=== PATIENT | male | born 1950 | race Caucasian/White ===

== ENCOUNTER 2018-03-06 06:44 | Day surgery (SDC) | payer MEDICARE ==
[2018-03-06] MEDS ORDERED: ECOTRIN PO ONE (07:27)
[2018-03-06 07:44] LABS: Basophils % (Auto) 0.6 % (0.0-1.8); Eosinophils # (Auto) 0.4 K/mm3 (0.0-0.4); Eosinophils % (Auto) 4.9 % (0.0-4.3); Hematocrit 31.1 % (35.5-45.6); Lymphocytes # (Auto) 2.1 K/mm3 (1.2-5.4); Lymphocytes % (Auto) 29.1 % (13.4-35.0); Mean Corpuscular HGB Conc 35 % (32-34); Mean Corpuscular Hemoglobin 31 pg (28-32); Mean Corpuscular Volume 87 fl (84-94); Monocytes # (Auto) 0.5 K/mm3 (0.0-0.8); Monocytes % (Auto) 7.6 % (0.0-7.3); Platelet Count 194 K/mm3 (140-440); Red Blood Count 3.59 M/mm3 (3.65-5.03); Red Cell Distribution Width 13.3 % (13.2-15.2)
[2018-03-06 07:58] LABS: BUN/Creatinine Ratio 25; Blood Urea Nitrogen 25 mg/dL (9-20); Calcium 9.6 mg/dL (8.4-10.2); Hemolysis Index 7
[2018-03-06 07:59] LABS: INR 1.02 (0.87-1.13)
[2018-03-06] MEDS ORDERED: NACL 0.9% 500 ML 500 ML IV SCH (08:00)
[2018-03-06] MEDS ORDERED: VERSED ONE (08:27)
[2018-03-06] MEDS ORDERED: SUBLIMAZE ONE (08:27)
[2018-03-06] MEDS ORDERED: CALAN ONE (08:27)
[2018-03-06] MEDS ORDERED: HEPARIN/NS 5000 UNIT/500ML(CATH LAB) 1,000 ML IR ONE (08:28)
[2018-03-06] MEDS: XYLOCAINE 2% INFILTRATI ONE ×2 (09:39→09:45)
[2018-03-06] MEDS: HEPARIN 10,000 UNITS/10 ML ONE ×2 (09:39→09:46)
[2018-03-06] MEDS: NITROGLYCERIN SYRINGE 3 ML ONE ×2 (09:40→09:46)
--- NOTE | 2018-03-06 12:36 | Cardiac Catherization Report ---
CARDIAC CATHETERIZATION REFERRING PHYSICIAN: Dipti Harris MD INDICATION FOR PROCEDURE: The patient is exceedingly pleasant 67-year-old gentleman with multiple risk factors including hypertension, diabetes, hyperlipidemia who presents here with symptoms of shortness of breath. He had a treadmill stress test, which was markedly abnormal with ST depression in the first two minutes. He is referred for left heart catheterization. Risks, benefits, and potential alternatives explained at length prior to obtaining informed consent. PROCEDURE IN DETAIL: The patient was brought to catheterization lab in a postabsorptive state, prepped and draped in sterile fashion. Ariel's test in right hand was normal. A 2 mL of 2% lidocaine used to anesthetize the right wrist. A standard 6-[place] hydrophilic sheath used to cannulate the right radial artery via modified Seldinger technique after spasmolytic cocktail given. Next, a 5-[place] JL3.5 catheter used to engage the left main. No dampening or ventricularization. Cineangiography performed in all projections. JR4 catheter used to cross the aortic valve under fluoroscopic guidance. Left ventriculography performed in 30 SAAVEDRA and 30 MONEGASQUE projections via hand injections, catheter flushed. Manual pullback performed with continuous pressure monitoring. Catheter used to engage the right coronary. No dampening or ventricularization. Cineangiography performed in all projections. Next, catheter removed from the body of wire, sheath removed. Manual pressure used to achieve hemostasis. There were no immediate complications noted. I directly supervised the administration of moderate sedation from 9:40 a.m. to 10 a.m. There were no immediate complications. INTERPRETATION: Aortic pressure is 100/50, LV pressure is 100, LVEDP of 12 mmHg. Left ventriculography revealed normal systolic performance with estimated fraction of 55-60%. No evidence of aortic stenosis or significant mitral regurgitation. The patient remained in sinus bradycardia throughout the procedure. He is on a beta ibrahima at home. CORONARY ANATOMY: This is a left dominant system. Right coronary is small and nondominant. The left main is without significant disease, bifurcates in the left anterior descending and left circumflex. Left circumflex is a moderate sized vessel, courses AV groove. She has a left PDA scattered luminal irregularities with no significant disease. LAD with a long complex calcified lesion all the way to the distal segment over 60 mm in length, involves the first three two of which are significance in size in distribution. The periapical LAD/target vessel is without significant disease. CONCLUSIONS: 1. Severe epicardial coronary artery disease as aforementioned. 2. Normal left ventricular systolic performance, estimated ejection fraction of 55-60%. 3. No evidence of aortic stenosis. Given the magnitude complexity of the disease, recommend complete revascularization with coronary bypass surgery. Risks, benefits, alternatives discussed. He will be transferred to [facility] under the Care of Dr. Stevne Kyle for coronary bypass surgery. He is clinically stable, chest pain free. He has been given aspirin. Standard radial care. Results of procedure explained in length to the patient and family. All questions and concerns were addressed. JOB# [id number] SORIN/RAPHAEL
[2018-03-06 14:49] VITALS: BP 138/60
--- NOTE | 2018-03-07 16:21 | Short Stay Summary ---
Short Stay Documentation Date of service: 03/06/18 - History H&P: obtained from office - Allergies and Medications Current Medications: Allergies No Known Allergies Allergy (Verified 03/06/18 07:27) Home Medications Medication Instructions Recorded Confirmed Last Taken Type Atenolol [Tenormin] 50 mg PO DAILY 03/06/18 03/06/18 03/05/18 History Lisinopril [Zestril TAB] 5 mg PO BID 03/06/18 03/06/18 03/05/18 History Metformin HCl 1,000 mg PO BID 03/06/18 03/06/18 03/05/18 History Simvastatin 20 mg PO HS 03/06/18 03/06/18 03/05/18 History - Brief post op/procedure progress note Date of procedure: 03/06/18 Pre-op diagnosis: abnormal stress test Post-op diagnosis: same (CAD) Procedure: [facility] - see cath report, pt tx to [place] Anesthesia: local Estimated blood loss: none Condition: stable - Disposition Condition at discharge: Good Disposition: [id number] - Discharge Diagnoses (1) CAD (coronary artery disease) Status: Chronic Short Stay Discharge Plan Activity: advance as tolerated Diet: low fat, low cholesterol, low salt, diabetic Wound: open to air, keep clean and dry, per your surgeon's advice Follow up with: PRIMARY CARE, [Primary Care Provider] - 7 Days
== END 2018-03-06 15:00 | disposition other institution (70) ==
LOC: CATHLABREC 06:44
PROVIDERS: ATTEND Internal Medicine
DX: I25.10 Atherosclerotic heart disease of native coronary artery without angina pectoris (principal); I10 Essential (primary) hypertension; E11.9 Type 2 diabetes mellitus without complications; J45.909 Unspecified asthma, uncomplicated; Z79.01 Long term (current) use of anticoagulants; Z79.899 Other long term (current) drug therapy; Z79.84 Long term (current) use of oral hypoglycemic drugs
CPT/HCPCS: 36415; 80048; 85025; 85610; 85730; 93005; 93010; 93458; 99156; C1894; J1644; J2250; J3010; J7040; Q9967